=== PATIENT | male | born 1965 | race Caucasian/White ===

== ENCOUNTER 2018-12-17 21:46 | Emergency (ER) | payer BC, OTHER ==
[2018-12-17] MEDS ORDERED: Ketorolac 60 MG/2 ML SDV IM ONE (22:30)
--- NOTE | 2018-12-17 22:34 | EDM.PDOC ---
ED HPI GENERAL MEDICAL PROBLEM - General Chief Complaint: ENT Problem Stated Complaint: TOOTHACHE Time Seen by Provider: 12/17/18 22:26 Source of Information: Reports: Patient History Limitations: Reports: No Limitations - History of Present Illness INITIAL COMMENTS - FREE TEXT/NARRATIVE: 53-year-old gentleman presents emergency department today complaint of dental pain, he was evaluated in the clinic earlier today diagnosed with dental abscess started on penicillin, he does have an appointment for dentistry on Thursday unfortunately is been unable to keep his pain under control combination Tylenol and Motrin - Related Data Allergies Allergy/AdvReac Type Severity Reaction Status Date / Time No Known Allergies Allergy Verified 12/17/18 22:20 Home Meds: Home Meds Doxepin [SINEquan] 25 mg PO BEDTIME 12/17/18 [History] Lisdexamfetamine Dimesylate [Vyvanse] 70 mg PO DAILY 12/17/18 [History] Penicillin V Potassium 250 mg PO QID 12/17/18 [History] buPROPion [buPROPion XL] 150 mg PO DAILY 12/17/18 [History] Past Medical History Cardiovascular History: Reports: Hypertension Psychiatric History: Reports: PTSD Endocrine/Metabolic History: Reports: Obesity/BMI 30+ - Past Surgical History HEENT Surgical History: Reports: Other (See Below) Other HEENT Surgeries/Procedures: nasal septum surgery Social & Family History - Tobacco Use Smoking Status *Q: Former Smoker Used Tobacco, but Quit: Yes Month/Year Tobacco Last Used: 2016 Tobacco Use Comment: vapes - Caffeine Use Caffeine Use: Reports: Coffee - Recreational Drug Use Recreational Drug Use: No ED ROS ENT - Review of Systems Review Of Systems: See Below HEENT: Reports: Dental Pain ED EXAM, ENT - Physical Exam Exam: See Below Text/Narrative:: Tooth #31 has a large dental Raven there is tenderness and edema around that tooth he does have some facial swelling as well lymphadenopathy is appreciated on the right side Exam Limited By: No Limitations General Appearance: Alert, WD/WN, No Apparent Distress Respiratory/Chest: No Respiratory Distress Course - Vital Signs Last Recorded V/S: Last Vital Signs Temp 97.0 F 12/17/18 22:24 Pulse 61 12/17/18 22:24 Resp 18 12/17/18 22:24 BP 188/113 H 12/17/18 22:24 Pulse Ox 98 12/17/18 22:24 - Orders/Labs/Meds Orders: Active Orders 24 hr Category Date Time Status Ketorolac [Toradol] Med 12/17/18 22:30 Once 60 mg IM ONETIME ONE Medication Orders Ketorolac Tromethamine (Toradol) 60 mg IM ONETIME ONE Stop: 12/17/18 22:31 Meds: Medications Generic Name Dose Route Start Last Admin Trade Name Lillie PRN Reason Stop Dose Admin Ketorolac Tromethamine 60 mg 12/17/18 22:30 Toradol IM 12/17/18 22:31 ONETIME ONE Departure - Departure Time of Disposition: 22:33 Disposition: Home, Self-Care 01 Condition: Fair Clinical Impression: Dental abscess - Discharge Information Referrals: Daria Pennington PA-C [Primary Care Provider] - Additional Instructions: Use ibuprofen for baseline pain control, use hydrocodone for breakthrough pain, please keep your follow-up appointment with dentistry - My Orders Last 24 Hours: My Active Orders 12/17/18 22:30 Ketorolac [Toradol] 60 mg IM ONETIME ONE - Assessment/Plan Last 24 Hours: My Active Orders 12/17/18 22:30 Ketorolac [Toradol] 60 mg IM ONETIME ONE Plan: Assessment Acuity = acute Site and laterality = dental abscess tooth #31 Etiology = dental caries and bacteria Manifestations = pain Location of injury = Home Lab values = none Plan prescription written for hydrocodone 5/325 one tablet by mouth every 4 hours when necessary total #12 he has a follow-up with dentistry on Thursday This note was dictated using [employer] voice recognition software please call with any questions on syntax or grammar.
== END 2018-12-17 22:50 | disposition home or self-care (01) ==
LOC: JP.ED 21:46
DX: K04.7 Periapical abscess without sinus (principal); K02.9 Dental caries, unspecified; B96.89 Other specified bacterial agents as the cause of diseases classified elsewhere; I10 Essential (primary) hypertension; Z79.899 Other long term (current) drug therapy; Z87.891 Personal history of nicotine dependence
CPT/HCPCS: 96372; 99282; J1885

== ENCOUNTER 2019-01-31 04:08 | Inpatient (IN) | payer BC, OTHER ==
[2019-01-31] MEDS ORDERED: HYDROmorphone 1 MG/ML Syringe IVPUSH ONE ×3 (04:19→05:51)
[2019-01-31] MEDS ORDERED: Ondansetron 4 MG/2 ML SDV IVPUSH ONE (04:21)
--- NOTE | 2019-01-31 04:28 | EDM.PDOC ---
<Manolo Cottrell G - Last Filed: 01/31/19 05:48> ED HPI GENERAL MEDICAL PROBLEM - General Chief Complaint: Abdominal Pain Stated Complaint: ABD PAIN Time Seen by Provider: 01/31/19 04:15 Source of Information: Reports: Patient, Old Records, RN History Limitations: Reports: No Limitations - History of Present Illness INITIAL COMMENTS - FREE TEXT/NARRATIVE: 53 yo male here with severe abdominal pain that began about 4 hrs ago. He has had associated nausea and vomiting. No fever. Pain began in the L flank, and is now just infraumbilical. He denies a hx of any previous surgeries on his abdomen or pain like this. No hematuria or dysuria. No hematemesis, melena or hematochezia. Onset: Today, Sudden Onset Date: 01/31/19 Onset Time: 00:10 Duration: Hour(s): (4), Constant Location: Reports: Abdomen, Back (L flank) Quality: Reports: Ache Severity: Severe Improves with: Reports: None Worsens with: Reports: None Context: Reports: Other (See HPI) Associated Symptoms: Reports: Nausea/Vomiting. Denies: Fever/Chills Treatments ENVIRONMENTAL SAMPLER: Reports: Other (see below) (none) Abdominal Pain Score (Numeric/FACES): 2 - Related Data Allergies Allergy/AdvReac Type Severity Reaction Status Date / Time No Known Allergies Allergy Verified 01/31/19 04:21 Home Meds: Home Meds Lisdexamfetamine Dimesylate [Vyvanse] 70 mg PO DAILY 12/17/18 [History] buPROPion [buPROPion XL] 150 mg PO DAILY 12/17/18 [History] Hydrocodone/Acetaminophen [Hydrocodon-Acetaminophen 5-325] 1 each PO TID PRN # 10 tablet 01/31/19 [Rx] Ondansetron [Zofran ODT] 4 mg PO Q6H PRN #10 tab.dis 01/31/19 [Rx] Past Medical History Cardiovascular History: Reports: Hypertension Psychiatric History: Reports: PTSD Endocrine/Metabolic History: Reports: Obesity/BMI 30+ - Past Surgical History HEENT Surgical History: Reports: Other (See Below) Other HEENT Surgeries/Procedures: nasal septum surgery Social & Family History - Caffeine Use Caffeine Use: Reports: Coffee ED ROS GENERAL - Review of Systems Review Of Systems: See Below Constitutional: Reports: Chills. Denies: Fever HEENT: Reports: No Symptoms Respiratory: Reports: No Symptoms Cardiovascular: Reports: No Symptoms GI/Abdominal: Reports: Abdominal Pain, Nausea, Vomiting. Denies: Black Stool, Bloody Stool, Constipation, Diarrhea, Distension, Flatus, Hematochezia, Melena : Reports: Flank Pain (Left initially) Musculoskeletal: Reports: No Symptoms Skin: Reports: No Symptoms Neurological: Reports: No Symptoms Psychiatric: Reports: No Symptoms ED EXAM, GI/ABD - Physical Exam Exam: See Below Exam Limited By: No Limitations General Appearance: Alert, WD/WN, No Apparent Distress Eyes: Bilateral: Normal Appearance Ears: Hearing Grossly Normal Nose: Normal Inspection, No Blood Throat/Mouth: Normal Inspection, Normal Lips, Normal Oropharynx, Normal Voice, No Airway Compromise Head: Atraumatic, Normocephalic Neck: Normal Inspection Respiratory/Chest: No Respiratory Distress, Lungs Clear, Normal Breath Sounds, No Accessory Muscle Use Cardiovascular: Regular Rate, Rhythm, No Edema GI/Abdominal Exam: Soft, No Distention, Tender (mild increase in pain with palpation). No: Non-Tender, Distended, Guarding, Rigid, Rebound Back Exam: Normal Inspection. No: CVA Tenderness (R), CVA Tenderness (L) Extremities: Normal Inspection, Normal Range of Motion, Non-Tender, No Pedal Edema Neurological: Alert, Oriented, CN II-XII Intact, Normal Cognition, No Motor/ Sensory Deficits Psychiatric: Normal Affect, Normal Mood Skin Exam: Warm, Dry, Intact, Normal Color, No Rash Course - Vital Signs Last Recorded V/S: Last Vital Signs Temp 96.1 F 01/31/19 04:23 Pulse 78 01/31/19 06:06 Resp 18 01/31/19 06:06 BP 127/77 01/31/19 06:06 Pulse Ox 96 01/31/19 06:06 - Orders/Labs/Meds Orders: Active Orders 24 hr Category Date Time Status Lactated Ringers [Ringers, Lactated] 1,000 ml Med 01/31/19 04:30 Active IV ASDIRECTED Medication Orders Lactated Ringer's (Ringers, Lactated) 1,000 mls @ 500 mls/hr IV ASDIRECTED ZENON Last Admin: 01/31/19 04:34 Dose: 500 mls/hr Labs: Laboratory Tests 01/31/19 01/31/19 01/31/19 Range/Units 04:43 04:43 05:01 WBC 8.7 (4.5-11.0) K/uL RBC 5.09 (4.30-5.90) M/uL Hgb 15.0 (12.0-15.0) g/dL Hct 43.5 (40.0-54.0) % MCV 86 (80-98) fL MCH 30 (27-31) pg MCHC 35 (32-36) % Plt Count 198 (150-400) K/uL Sodium 133 L (140-148) mmol/L Potassium 4.1 (3.6-5.2) mmol/L Chloride 97 L (100-108) mmol/L Carbon Dioxide 24 (21-32) mmol/L Anion Gap 16.1 H (5.0-14.0) mmol/L BUN 18 (7-18) mg/dL Creatinine 1.1 (0.8-1.3) mg/dL Est Cr Clr Drug Dosing 94.96 mL/min Estimated GFR (MDRD) > 60 (>60) Glucose 163 H (74-106) mg/dL Calcium 9.4 (8.5-10.1) mg/dL Total Bilirubin 0.5 (0.2-1.0) mg/dL AST 18 (15-37) U/L ALT 50 (12-78) U/L Alkaline Phosphatase 47 (46-116) U/L Total Protein 7.0 (6.4-8.2) g/dL Albumin 4.0 (3.4-5.0) g/dL Globulin 3.0 (2.3-3.5) g/dL Albumin/Globulin Ratio 1.3 (1.2-2.2) Lipase 107 (73-393) U/L Urine Color Yellow Urine Appearance Clear Urine pH 5.0 (4.5-8.0) Ur Specific [place] 1.025 (1.008-1.030) Urine Protein Trace (NEGATIVE) mg/dL Urine Glucose (UA) Normal (NEGATIVE) mg/dL Urine Ketones Negative (NEGATIVE) mg/dL Urine Occult Blood Negative (NEGATIVE) Urine Nitrite Negative (NEGAITVE) Urine Bilirubin Negative (NEGATIVE) Urine Urobilinogen Normal (NORMAL) mg/dL Ur Leukocyte Esterase Negative (NEGATIVE) Urine RBC 0-5 (0-5) Urine WBC Not seen (0-5) Ur Epithelial Cells Rare Amorphous Sediment Not seen Urine Bacteria Few Urine Mucus Not seen Meds: Medications Generic Name Dose Route Start Last Admin Trade Name Lillie PRN Reason Stop Dose Admin Lactated Ringer's 1,000 mls @ 500 mls/hr 01/31/19 04:30 01/31/19 04:34 Ringers, Lactated IV 500 mls/hr ASDIRECTED ZENON Administration Discontinued Medications Generic Name Dose Route Start Last Admin Trade Name Lillie PRN Reason Stop Dose Admin Hydromorphone HCl 1 mg 01/31/19 04:19 01/31/19 04:34 Dilaudid IVPUSH 01/31/19 04:20 1 mg ONETIME ONE Administration Hydromorphone HCl 1 mg 01/31/19 04:37 01/31/19 04:47 Dilaudid IVPUSH 01/31/19 04:38 1 mg ONETIME ONE Administration Hydromorphone HCl 1 mg 01/31/19 05:51 01/31/19 05:57 Dilaudid IVPUSH 01/31/19 05:52 1 mg ONETIME ONE Administration Sodium Chloride 1,000 mls @ 1,000 mls/hr 01/31/19 05:50 01/31/19 06:04 Normal Saline IV 01/31/19 06:49 1,000 mls/hr .BOLUS ONE Administration Iopamidol 150 ml 01/31/19 06:00 01/31/19 06:23 Isovue-300 (61%) IV 150 ml . DIRECTED ZENON Administration Ketorolac Tromethamine 30 mg 01/31/19 04:31 01/31/19 04:35 Toradol IVPUSH 01/31/19 04:32 30 mg ONETIME ONE Administration Ondansetron HCl 4 mg 01/31/19 04:21 01/31/19 04:35 Zofran IVPUSH 01/31/19 04:22 4 mg ONETIME ONE Administration Sodium Chloride 10 ml 01/31/19 05:55 01/31/19 06:24 Saline Flush FLUSH 01/31/19 05:56 10 ml ONETIME ONE Administration - Radiology Interpretation Free Text/Narrative:: CT abd/pelvis with IV contrast- CT Results Date: 01/31/19 Departure - Departure Disposition: Home, Self-Care 01 Clinical Impression: Abdominal pain Qualifiers: Abdominal location: left upper quadrant Qualified Code(s): R10.12 - Left upper quadrant pain - Discharge Information Prescriptions: Hydrocodone/Acetaminophen [Hydrocodon-Acetaminophen 5-325] 1 each PO TID PRN # 10 tablet PRN Reason: Pain Ondansetron [Zofran ODT] 4 mg PO Q6H PRN #10 tab.dis PRN Reason: Nausea Instructions: Abdominal Pain, Adult, [id number] Referrals: PCP,None [Primary Care Provider] - Forms: ED Department Discharge Additional Instructions: Your medications have been faxed to [facility], use hydrocodone as needed for pain control, use Zofran as needed for nausea and vomiting symptoms, please report for your HIDA scan as scheduled, Dr. Redd will see you in clinic following the HIDA scan for further plan, call or return to the emergency department with worsening of symptoms <OfficerRonal - Last Filed: 01/31/19 07:29> Departure - Departure Time of Disposition: 07:28 Condition: Fair - Assessment/Plan Plan: Took over care from Dr. Lira at 7 AM Assessment Acuity = acute Site and laterality = abdominal pain Etiology = suspicious for underlying gallbladder disease Manifestations = pain now resolved Location of injury = Home Lab values = CBC CMP, urinalysis unremarkable CT scan of the abdomen shows no acute process however splenomegaly, cholelithiasis diverticulosis CT copy provided to the patient Plan He is pain-free at this time prescription written for hydrocodone 5/325 one tab by mouth 3 times a day when necessary total #10 also Zofran ODT 4 mg 1 tablet by mouth every 6 hours when necessary total #10 both medications faxed to [facility] he is set up for a HIDA scan with follow-up consultation from Dr. Redd in the clinic, I did discuss the case with Dr. Redd at 710 This note was dictated using [employer] voice recognition software please call with any questions on syntax or grammar.
[2019-01-31] MEDS ORDERED: Lactated Ringers 1,000 ML IV SCH (04:30)
[2019-01-31] MEDS ORDERED: Ketorolac 30 MG/ML SDV IVPUSH ONE (04:31)
[2019-01-31] MEDS ORDERED: Sodium Chloride 0.9% 1,000 ML IV ONE (05:50)
[2019-01-31] MEDS ORDERED: Iopamidol 612 MG/ML 150 ML Bottle IV SCH (06:00)
[2019-01-31] MEDS: Sodium Chloride 0.9% 10 ML Syringe FLUSH ONE ×2 (06:06→06:24)
--- NOTE | 2019-01-31 06:52 | CRLCT ---
HISTORY: Abdominal pain, vomiting. TECHNIQUE: CT abdomen and pelvis with IV contrast. COMPARISON: None. FINDINGS: Abdomen: Focal fatty infiltration of liver near the falciform ligament. No hepatic mass. No bile duct dilation. Cholelithiasis. No pancreatic mass or pancreatic duct dilation. No spleen lesions. Spleen is enlarged measuring 18.5 cm craniocaudal. No adrenal nodules. Kidneys enhance symmetrically. No renal mass. No hydronephrosis. No dilated bowel. No acute appendicitis. Mild colonic diverticulosis. No pericolonic inflammatory change. No free fluid. No free intraperitoneal gas. Small fat containing umbilical hernia. No lymphadenopathy. Abdominal aorta is normal caliber. Pelvis: No lymphadenopathy. Musculoskeletal: Degenerative changes of the spine and sacroiliac joints. Lower chest: Minimal atelectasis in the lung bases. 3 mm pulmonary nodules in the right lower lobe (series 2 images 2 and 24). IMPRESSION: 1. No acute abnormality in the abdomen or pelvis. 2. Splenomegaly. 3. Cholelithiasis. 4. Colonic diverticulosis. 5. 2 3 mm pulmonary nodules in right lower lobe. If patient is high risk for malignancy consider followup chest CT in 12 months. Dictated by sEa Ayon MD @ 01/31/2019 6:50:44 AM Please note that all CT scans at this facility use dose modulation, iterative reconstruction, and/or weight-based dosing when appropriate to reduce radiation dose to as low as reasonably achievable. Dictated by: Esa Ayon MD @ 01/31/2019 06:50:57 (Electronically Signed)
[2019-01-31] MEDS ORDERED: fentaNYL 100 MCG/2 ML SDV IVPUSH ONE (07:41)
[2019-01-31] MEDS ORDERED: Prochlorperazine 10 MG/2 ML SDV IVPUSH ONE (09:34)
--- NOTE | 2019-01-31 09:50 | PCM.HP ---
H&P History of Present Illness - General Date of Service: 01/31/19 Admit Problem/Dx: Admission Diagnosis/Problem Admission Diagnosis/Problem Cholecystitis Source of Information: Patient, Family, Provider, RN Notes Reviewed History Limitations: Reports: No Limitations - History of Present Illness Initial Comments - Free Text/Narative: Mr. Larry is a 53-year-old gentleman who is admitted through the emergency department with right upper quadrant abdominal pain, nausea, and vomiting, secondary to underlying cholecystitis. It been feeling well until last night when he began to experience right upper quadrant abdominal pain associated with nausea vomiting. Symptoms persisted and he presented to the emergency department for further evaluation. Laboratory studies are unremarkable, CT scan did show significant cholelithiasis. Right upper quadrant ultrasound shows all bladder wall thickening with a positive Farr's sign. Findings have been reviewed with Dr. Redd who is requested patient be admitted to the hospital, he will seen in a.m. with plan for laparoscopic cholecystectomy. Abdominal Pain Score (Numeric/FACES): 6 - Related Data Allergies/Adverse Reactions: Allergies Allergy/AdvReac Type Severity Reaction Status Date / Time No Known Allergies Allergy Verified 01/31/19 04:21 Home Medications: Home Meds Lisdexamfetamine Dimesylate [Vyvanse] 70 mg PO DAILY 12/17/18 [History] buPROPion [buPROPion XL] 150 mg PO DAILY 12/17/18 [History] Hydrocodone/Acetaminophen [Hydrocodon-Acetaminophen 5-325] 1 each PO TID PRN # 10 tablet 01/31/19 [Rx] Ondansetron [Zofran ODT] 4 mg PO Q6H PRN #10 tab.dis 01/31/19 [Rx] Past Medical History HEENT History: Reports: Allergic Rhinitis, Impaired Vision Cardiovascular History: Reports: Hypertension Respiratory History: Reports: Sleep Apnea Psychiatric History: Reports: PTSD Endocrine/Metabolic History: Reports: Obesity/BMI 30+ Dermatologic History: Reports: Cellulitis - Infectious Disease History Infectious Disease History: Reports: Chicken Pox - Past Surgical History HEENT Surgical History: Reports: Other (See Below) Other HEENT Surgeries/Procedures: nasal septum surgery Social & Family History - Caffeine Use Caffeine Use: Reports: Coffee - Recreational Drug Use Recreational Drug Use: No H&P Review of Systems - Review of Systems: Review Of Systems: See Below General: Reports: Chills, Weakness, Diaphoresis, Decreased Appetite HEENT: Reports: No Symptoms Pulmonary: Reports: No Symptoms Cardiovascular: Reports: No Symptoms Gastrointestinal: Reports: Abdominal Pain, Anorexia, Constipation, Distension, Nausea, Vomiting. Denies: Black Stool, Bloody Stool, Diarrhea, Difficulty Swallowing Genitourinary: Reports: No Symptoms Musculoskeletal: Reports: No Symptoms Skin: Reports: No Symptoms Psychiatric: Reports: No Symptoms Neurological: Reports: No Symptoms Hematologic/Lymphatic: Reports: No Symptoms Immunologic: Reports: No Symptoms Exam - Exam Exam: See Below - Vital Signs Vital Signs: Last Vital Signs Temp 96.1 F 01/31/19 07:34 Pulse 69 01/31/19 07:34 Resp 16 01/31/19 07:34 BP 131/77 01/31/19 07:34 Pulse Ox 96 01/31/19 07:34 Weight: 332 lb 0.258 oz - Exam Quality Assessment: DVT Prophylaxis General: Alert, Oriented, Cooperative, Moderate Distress HEENT: Conjunctiva Clear, Hearing Intact, Mucosa Moist & [place], Normal Nasal Septum, Posterior Pharynx Clear, Pupils Equal Neck: Supple, Trachea Midline, +2 Carotid Pulse wo Bruit Lungs: Clear to Auscultation, Normal Respiratory Effort Cardiovascular: Regular Rate, Regular Rhythm, Normal S1, Normal S2. No: Systolic Murmur, Diastolic Murmur GI/Abdominal Exam: Soft, No Organomegaly, Distended, Tender. No: Guarding, Rigid, Rebound Back Exam: Normal Inspection, Full Range of Motion Extremities: Non-Tender, No Pedal Edema Skin: Warm, Dry, Intact Neurological: Cranial Nerves Intact, Strength Equal Bilateral, Normal Speech, Normal Tone. No: Sensation Intact Neuro Extensive - Mental Status: Alert, Oriented x3, Normal Mood/Affect, Normal Cognition, Memory Intact - Patient Data Lab Results Last 24 hrs: Laboratory Results - last 24 hr 01/31/19 01/31/19 01/31/19 Range/Units 04:43 04:43 05:01 WBC 8.7 (4.5-11.0) K/uL RBC 5.09 (4.30-5.90) M/uL Hgb 15.0 (12.0-15.0) g/dL Hct 43.5 (40.0-54.0) % MCV 86 (80-98) fL MCH 30 (27-31) pg MCHC 35 (32-36) % Plt Count 198 (150-400) K/uL Sodium 133 L (140-148) mmol/L Potassium 4.1 (3.6-5.2) mmol/L Chloride 97 L (100-108) mmol/L Carbon Dioxide 24 (21-32) mmol/L Anion Gap 16.1 H (5.0-14.0) mmol/L BUN 18 (7-18) mg/dL Creatinine 1.1 (0.8-1.3) mg/dL Est Cr Clr Drug Dosing 94.96 mL/min Estimated GFR (MDRD) > 60 (>60) Glucose 163 H (74-106) mg/dL Calcium 9.4 (8.5-10.1) mg/dL Total Bilirubin 0.5 (0.2-1.0) mg/dL AST 18 (15-37) U/L ALT 50 (12-78) U/L Alkaline Phosphatase 47 (46-116) U/L Troponin I (0.000-0.056) ng/mL Total Protein 7.0 (6.4-8.2) g/dL Albumin 4.0 (3.4-5.0) g/dL Globulin 3.0 (2.3-3.5) g/dL Albumin/Globulin Ratio 1.3 (1.2-2.2) Lipase 107 (73-393) U/L Urine Color Yellow Urine Appearance Clear Urine pH 5.0 (4.5-8.0) Ur Specific [place] 1.025 (1.008-1.030) Urine Protein Trace (NEGATIVE) mg/dL Urine Glucose (UA) Normal (NEGATIVE) mg/dL Urine Ketones Negative (NEGATIVE) mg/dL Urine Occult Blood Negative (NEGATIVE) Urine Nitrite Negative (NEGAITVE) Urine Bilirubin Negative (NEGATIVE) Urine Urobilinogen Normal (NORMAL) mg/dL Ur Leukocyte Esterase Negative (NEGATIVE) Urine RBC 0-5 (0-5) Urine WBC Not seen (0-5) Ur Epithelial Cells Rare Amorphous Sediment Not seen Urine Bacteria Few Urine Mucus Not seen 01/31/19 Range/Units 07:54 WBC (4.5-11.0) K/uL RBC (4.30-5.90) M/uL Hgb (12.0-15.0) g/dL Hct (40.0-54.0) % MCV (80-98) fL MCH (27-31) pg MCHC (32-36) % Plt Count (150-400) K/uL Sodium (140-148) mmol/L Potassium (3.6-5.2) mmol/L Chloride (100-108) mmol/L Carbon Dioxide (21-32) mmol/L Anion Gap (5.0-14.0) mmol/L BUN (7-18) mg/dL Creatinine (0.8-1.3) mg/dL Est Cr Clr Drug Dosing mL/min Estimated GFR (MDRD) (>60) Glucose (74-106) mg/dL Calcium (8.5-10.1) mg/dL Total Bilirubin (0.2-1.0) mg/dL AST (15-37) U/L ALT (12-78) U/L Alkaline Phosphatase (46-116) U/L Troponin I < 0.017 (0.000-0.056) ng/mL Total Protein (6.4-8.2) g/dL Albumin (3.4-5.0) g/dL Globulin (2.3-3.5) g/dL Albumin/Globulin Ratio (1.2-2.2) Lipase (73-393) U/L Urine Color Urine Appearance Urine pH (4.5-8.0) Ur Specific [place] (1.008-1.030) Urine Protein (NEGATIVE) mg/dL Urine Glucose (UA) (NEGATIVE) mg/dL Urine Ketones (NEGATIVE) mg/dL Urine Occult Blood (NEGATIVE) Urine Nitrite (NEGAITVE) Urine Bilirubin (NEGATIVE) Urine Urobilinogen (NORMAL) mg/dL Ur Leukocyte Esterase (NEGATIVE) Urine RBC (0-5) Urine WBC (0-5) Ur Epithelial Cells Amorphous Sediment Urine Bacteria Urine Mucus Result Diagrams: 01/31/19 04:43 01/31/19 04:43 *Q Meaningful Use (ADM) - VTE Risk Assess *Q Each Risk Factor Represents 1 Point: Age 41 - 59 years, Obesity ( BMI > 25 kg/m2 ) Total Score 1 Point Risk Factors: 2 Each Risk Factor Represents 2 Points: None Total Score 2 Point Risk Factors: 0 Each Risk Factor Represents 3 Points: None Total Score 3 Point Risk Factors: 0 Each Risk Factor Represents 5 Points: None Total Score 5 Point Risk Factors: 0 Venous Thromboembolism Risk Factor Score *Q: 2 Problem List Initiated/Reviewed/Updated: Yes Orders Last 24hrs: Active Orders 24 hr Category Date Time Status Patient Status Manage Transfer [TRANSFER] Routine ADT 01/31/19 09:34 Ordered Abdomen Ltd [US] Stat Exams 01/31/19 08:48 Taken Lactated Ringers [Ringers, Lactated] 1,000 ml Med 01/31/19 04:30 Active IV ASDIRECTED Resuscitation Status Routine Resus Stat 01/31/19 09:36 Ordered Medication Orders Lactated Ringer's (Ringers, Lactated) 1,000 mls @ 500 mls/hr IV ASDIRECTED ZENON Last Admin: 01/31/19 04:34 Dose: 500 mls/hr Assessment/Plan Comment:: ASSESSMENT AND PLAN ACUTE CHOLECYSTITIS-onset of symptoms last night with right upper quadrant abdominal pain, nausea, and vomiting. Abdominal ultrasound shows gallbladder wall thickening with positive Farr sign. -Consult Dr. Redd for laparoscopic cholecystectomy -Nothing by mouth -IV fluids for hydration -Medication for pain and nausea as needed -IV fluids for hydration -IV Unasyn and Azactam SLEEP APNEA -Patient's will bring in his CPAP unit for use while in the hospital MAINTENANCE ISSUES -DVT prophylaxis; scuds -GI prophylaxis; Protonix 40 mg IV every 24 hours -Matthews catheter; not indicated -Nutrition; nothing by mouth -Nicotine dependence; not required CODE STATUS-FULL CODE ADMISSION STATUS-patient will be admitted to inpatient status, expect at least a 2 night hospital stay for evaluation and management of problems as outlined above. At the time of this admission I do not reasonably expected evaluation and management of this problem will require more than a 96 hour hospital stay. DISPOSITION-anticipate discharge to home after the hospital stay. PRIMARY CARE PROVIDER
--- NOTE | 2019-01-31 09:54 | US ---
Abdomen Ltd CLINICAL HISTORY: Right upper quadrant pain, gallstones FINDINGS: Liver is homogeneous echotexture. There is no intrahepatic biliary dilatation. There are numerous gallstones. The gallbladder wall measures 5 mm. No pericholecystic fluid is identified. Patient did have a positive Farr's sign on scanning over the gallbladder. Common bile duct measures 7 mm. The pancreas is free of mass. Right kidney has a normal contour. IMPRESSION: Cholelithiasis with thickened gallbladder wall and regional tenderness suggesting cholecystitis. Common bile duct is marginal at 7 mm in diameter
[2019-01-31] MEDS ORDERED: Acetaminophen 325 MG Tab PO PRN (10:19)
[2019-01-31] MEDS ORDERED: Ondansetron 4 MG/2 ML SDV IV PRN (10:19)
[2019-01-31] MEDS ORDERED: Polyethylene Glycol 3350 Powder 17 GM Packet PO PRN (10:19)
[2019-01-31] MEDS ORDERED: Sodium Phosphate,Monobasic/Sodium Phosphate,Dibasic Enema 133 ML Bottle RECTAL PRN (10:19)
[2019-01-31] MEDS ORDERED: Sodium Chloride 0.9% 10 ML Syringe FLUSH PRN (10:19)
[2019-01-31] MEDS ORDERED: LORazepam 2 MG/ML SDV IV PRN (10:19)
[2019-01-31] MEDS: Lactated Ringers 1,000 ML IV SCH ×2 (10:38→19:45)
[2019-01-31] MEDS: Pantoprazole 40 MG Vial IVPUSH SCH (10:41)
[2019-01-31] MEDS: buPROPion 150 MG Tab.ER PO SCH (10:41)
[2019-01-31] MEDS ORDERED: Bisacodyl 10 MG Supp RECTAL ONE (11:00)
[2019-01-31] MEDS: HYDROmorphone 0.5 MG/0.5 ML Syringe IVPUSH PRN ×2 (11:14→13:14)
[2019-01-31] MEDS: Ampicillin/Sulbactam Na 1.5 GM in Sodium Chloride 0.9% 50 ML IV SCH ×3 (11:37→21:54)
[2019-01-31] MEDS ORDERED: Aztreonam/Dextrose-Water 1 GM in Premix Bag 1 BAG IV SCH (12:00)
[2019-01-31] MEDS ORDERED: Naloxone 0.4 MG/ML SDV IV PRN (14:53)
[2019-01-31] MEDS ORDERED: HYDROmorphone/Normal Saline 15 MG/30 ML PCA IV PRN (14:53)
[2019-01-31] MEDS ORDERED: Scopolamine 1.5 MG Transdermal Patch TRDERM PRN (20:04)
[2019-02-01] MEDS: Ampicillin/Sulbactam Na 1.5 GM in Sodium Chloride 0.9% 50 ML IV SCH ×4 (04:11→23:52)
[2019-02-01] MEDS: Lactated Ringers 1,000 ML IV SCH (05:03)
[2019-02-01] MEDS ORDERED: Ketorolac 60 MG/2 ML SDV IM STA (08:00)
[2019-02-01] MEDS: Magnesium Sulfate/Water 2 GM in Premix Bag 1 BAG IV SCH ×3 (08:22→21:20)
[2019-02-01] MEDS ORDERED: fentaNYL 250 MCG/5 ML SDV ONE (08:57)
[2019-02-01] MEDS ORDERED: Ondansetron 4 MG/2 ML SDV ONE (08:58)
[2019-02-01] MEDS ORDERED: Rocuronium 50 MG/5 ML Vial ONE (08:58)
[2019-02-01] MEDS ORDERED: Dexamethasone 4 MG/ML SDV ONE (08:58)
[2019-02-01] MEDS ORDERED: Glycopyrrolate 0.2 MG/ML 5 ML MDV ONE (08:58)
[2019-02-01] MEDS ORDERED: Propofol 200 MG/20 ML SDV ONE (08:58)
[2019-02-01] MEDS ORDERED: Neostigmine Methylsulfate 1 MG/ML 5 ML Syringe ONE (08:58)
[2019-02-01] MEDS ORDERED: Succinylcholine 200 MG/10 ML MDV ONE (08:58)
[2019-02-01] MEDS ORDERED: CHECK SCOPOLAMINE PATCH DAILY TOP SCH (09:00)
[2019-02-01] MEDS: Pantoprazole 40 MG Vial IVPUSH SCH (10:11)
[2019-02-01] MEDS: VYVANSE 70 MG PO SCH (10:21)
[2019-02-01] MEDS ORDERED: Bupivacaine 0.5%/EPINEPHrine 1:200,000 50 ML MDV ONE ×2 (11:08→13:14)
--- NOTE | 2019-02-01 12:47 | PN ---
DATE OF SERVICE: 02/01/2019 SUBJECTIVE: Kingsley is n.p.o. He will be having laparoscopic cholecystectomy today. He does report a caffeine headache and is going through some nicotine withdrawal. The pain is controlled. Vital signs have been stable. REVIEW OF SYSTEMS: Remainder of review of systems negative for any pertinent positives and negatives. OBJECTIVE: GENERAL: Kingsley Larry is a 53-year-old male. He is alert, orientated, sitting up in the chair. VITAL SIGNS: TPR 98, 84, 16, blood pressure is 136/78. HEENT: Negative. NECK: Supple. HEART: Regular rate and rhythm. LUNGS: Clear. ABDOMEN: Minimal tenderness in the right upper quadrant. EXTREMITIES: Without peripheral edema. ASSESSMENT: Cholecystitis. PLAN: 1. Remain n.p.o. Preoperative evaluation and discussion of possible risks and possible complications, length of stay discussed as well as postoperative instructions. 2. Rx Toradol 60 mg IM given onetime for headache. 3. Magnesium 2 g IV q.6 hours x48 hours IV. 4. May have nicotine 7 mg patch postoperatively. 5. We will evaluate p.r.n. or in a.m. Sarah Eaton PA-C /[id number]
[2019-02-01] MEDS ORDERED: fentaNYL 100 MCG/2 ML SDV ONE (13:04)
[2019-02-01] MEDS ORDERED: hydrOXYzine HCl 100 MG/2 ML SDV IM ONE (13:21)
[2019-02-01] MEDS: buPROPion 150 MG Tab.ER PO SCH (14:40)
[2019-02-01] MEDS ORDERED: Dextrose 5%-Lactated Ringers 1,000 ML IV SCH (14:45)
[2019-02-01] MEDS: Acetaminophen/oxyCODONE 325-5 MG Tab PO PRN ×3 (15:32→23:55)
[2019-02-01] MEDS: Nicotine 7 MG/24 Hr Patch TRDERM SCH (15:39)
--- NOTE | 2019-02-01 17:03 | PCM.PN ---
- General Info Date of Service: 02/01/19 Subjective Update: Mr. Larry is status post cholecystectomy done earlier today by Dr. Redd. During monitoring for surgery he was found to be in atrial fibrillation with controlled ventricular response. This is a new finding for him, there is no history of underlying cardiac disease. He is not aware of the dysrhythmia and denies any symptoms of cardiac disease. He has no history of thyroid disease and other than mild hypomagnesemia no significant electrolyte abnormalities or anemia. - Review of Systems General: Reports: No Symptoms Pulmonary: Reports: No Symptoms Cardiovascular: Reports: No Symptoms Gastrointestinal: Reports: Abdominal Pain. Denies: Difficulty Swallowing, Nausea, Vomiting - Patient Data Vitals - Most Recent: Last Vital Signs Temp 98.4 F 02/01/19 16:00 Pulse 98 02/01/19 16:00 Resp 16 02/01/19 16:00 BP 107/63 02/01/19 16:00 Pulse Ox 94 L 02/01/19 16:00 Weight - Most Recent: 332 lb 0.258 oz I&O - Last 24 Hours: Intake & Output 02/01/19 02/01/19 02/01/19 06:59 14:59 22:59 Intake Total 1248 780 650 Output Total 2175 5 1150 Balance -927 775 -500 Lab Results Last 24 Hours: Laboratory Results - last 24 hr 02/01/19 02/01/19 Range/Units 04:15 04:15 WBC 8.0 (4.5-11.0) K/uL RBC 4.50 (4.30-5.90) M/uL Hgb 13.5 (12.0-15.0) g/dL Hct 38.8 L (40.0-54.0) % MCV 86 (80-98) fL MCH 30 (27-31) pg MCHC 35 (32-36) % Plt Count 188 (150-400) K/uL Neut % (Auto) 75 H (36-66) % Lymph % (Auto) 17 L (24-44) % Barnwell % (Auto) 7 H (2-6) % Eos % (Auto) 1 L (2-4) % Baso % (Auto) 0 (0-1) % Sodium 137 L (140-148) mmol/L Potassium 3.7 (3.6-5.2) mmol/L Chloride 101 (100-108) mmol/L Carbon Dioxide 28 (21-32) mmol/L Anion Gap 11.7 (5.0-14.0) mmol/L BUN 9 (7-18) mg/dL Creatinine 0.9 (0.8-1.3) mg/dL Est Cr Clr Drug Dosing 116.06 mL/min Estimated GFR (MDRD) > 60 (>60) Glucose 105 (74-106) mg/dL Calcium 8.5 (8.5-10.1) mg/dL Magnesium 1.6 L (1.8-2.4) mg/dL Total Bilirubin 0.8 D (0.2-1.0) mg/dL AST 18 (15-37) U/L ALT 41 (12-78) U/L Alkaline Phosphatase 40 L (46-116) U/L Total Protein 5.9 L (6.4-8.2) g/dL Albumin 3.3 L (3.4-5.0) g/dL Globulin 2.6 (2.3-3.5) g/dL Albumin/Globulin Ratio 1.3 (1.2-2.2) Moiz Results Last 24 Hours: Microbiology 02/01/19 13:39 Gram Stain - Final Gallbladder Fluid - Bile Med Orders - Current: Current Medications Acetaminophen (Tylenol) 650 mg PO Q4H PRN PRN Reason: Pain (Mild 1-3)/fever Last Admin: 01/31/19 18:20 Dose: 650 mg Bupropion HCl (Wellbutrin Xl) 150 mg PO DAILY [facility] Last Admin: 02/01/19 14:40 Dose: 150 mg Ampicillin Sodium/Sulbactam (Sodium 1.5 gm/ Sodium Chloride) 50 mls @ 100 mls/ hr IV Q6HR [facility] Last Admin: 02/01/19 16:20 Dose: 100 mls/hr Aztreonam 1 gm/ Sodium (Chloride) 50 mls @ 100 mls/hr IV Q8H [facility] Last Admin: 02/01/19 12:00 Dose: 100 mls/hr Magnesium Sulfate 2 gm/ Premix 50 mls @ 25 mls/hr IV Q6H [facility] Stop: 02/04/19 03:59 Last Admin: 02/01/19 14:42 Dose: 25 mls/hr Dextrose/Lactated Ringer's (Dextrose 5%-Lactated Ringers) 1,000 mls @ 150 mls/ hr IV ASDIRECTED [facility] Lorazepam (Ativan) 0.5 mg IV Q2H PRN PRN Reason: Nausea/Vomiting Miscellaneous Information (Remove Patch) 1 ea TRDERM BEDTIME [facility] Nicotine (Habitrol) 7 mg TRDERM DAILY [facility] Last Admin: 02/01/19 15:39 Dose: 7 mg Vyvanse 70 Mg Pom* (*) 70 mg PO DAILY [facility] Last Admin: 02/01/19 10:21 Dose: Not Given Ondansetron HCl (Zofran) 4 mg IV Q4H PRN PRN Reason: Nausea/Vomiting Oxycodone/Acetaminophen (Percocet 325-5 Mg) 1 - 2 tab PO Q4H PRN PRN Reason: Pain Last Admin: 02/01/19 15:32 Dose: 1 tab Pantoprazole Sodium (Protonix Iv) 40 mg IVPUSH Q24H [facility] Last Admin: 02/01/19 10:11 Dose: 40 mg Polyethylene Glycol (Miralax) 17 gm PO DAILY PRN PRN Reason: Constipation Scopolamine (Transderm-Scop) 1.5 mg TRDERM Q72H PRN PRN Reason: Nausea/Vomiting Last Admin: 01/31/19 20:14 Dose: 1.5 mg Sodium Biphosphate/Sodium Phosphate (Fleet Enema) 133 ml RECTAL ONETIME PRN PRN Reason: Constipation Last Admin: 01/31/19 13:14 Dose: 133 ml Discontinued Medications Bisacodyl (Dulcolax) 10 mg RECTAL ONETIME ONE Stop: 01/31/19 11:01 Last Admin: 01/31/19 10:40 Dose: 10 mg Bupivacaine HCl/Epinephrine Bitart (Marcaine 0.5%/Epinephrine 1:200,000) Confirm Administered Dose 50 ml .ROUTE .STK-MED ONE Stop: 02/01/19 11:09 Last Admin: 02/01/19 12:00 Dose: 50 ml Bupivacaine HCl/Epinephrine Bitart (Marcaine 0.5%/Epinephrine 1:200,000) Confirm Administered Dose 50 ml .ROUTE .STK-MED ONE Stop: 02/01/19 13:15 Last Admin: 02/01/19 13:18 Dose: 30 ml Ropivacaine 60 ml/Dexamethasone 8 mg/Epinephrine HCl 0.4 mg/ Sodium Chloride 17.6 ml 0 ml NERVRT ASDIRECTED [facility] Last Admin: 02/01/19 12:18 Dose: 80 syringe Dexamethasone (Dexamethasone) Confirm Administered Dose 4 mg .ROUTE .STK-MED ONE Stop: 02/01/19 08:59 Fentanyl (Sublimaze) 100 mcg IVPUSH ONETIME ONE Stop: 01/31/19 07:42 Last Admin: 01/31/19 07:47 Dose: 100 mcg Fentanyl (Sublimaze) Confirm Administered Dose 250 mcg .ROUTE .STK-MED ONE Stop: 02/01/19 08:58 Fentanyl (Sublimaze) Confirm Administered Dose 100 mcg .ROUTE .STK-MED ONE Stop: 02/01/19 13:05 Glycopyrrolate (Robinul) Confirm Administered Dose 1 mg .ROUTE .STK-MED ONE Stop: 02/01/19 08:59 Hydromorphone HCl (Dilaudid) 1 mg IVPUSH ONETIME ONE Stop: 01/31/19 04:20 Last Admin: 01/31/19 04:34 Dose: 1 mg Hydromorphone HCl (Dilaudid) 1 mg IVPUSH ONETIME ONE Stop: 01/31/19 04:38 Last Admin: 01/31/19 04:47 Dose: 1 mg Hydromorphone HCl (Dilaudid) 1 mg IVPUSH ONETIME ONE Stop: 01/31/19 05:52 Last Admin: 01/31/19 05:57 Dose: 1 mg Hydromorphone HCl (Dilaudid) 0.5 mg IVPUSH Q2H PRN PRN Reason: Pain Last Admin: 01/31/19 13:14 Dose: 0.5 mg Hydromorphone HCl (Dilaudid Tomb Maker Helper 15 Mg In Ns 30 Ml) 0 mg IV ASDIRECTED PRN; Protocol PRN Reason: [employer] PAIN CONTROL Last Admin: 01/31/19 15:22 Dose: 0.3 mg Lactated Ringer's (Ringers, Lactated) 1,000 mls @ 500 mls/hr IV ASDIRECTED [facility] Last Admin: 01/31/19 04:34 Dose: 500 mls/hr Sodium Chloride (Normal Saline) 1,000 mls @ 1,000 mls/hr IV .BOLUS ONE Stop: 01/31/19 06:49 Last Admin: 01/31/19 06:04 Dose: 1,000 mls/hr Lactated Ringer's (Ringers, Lactated) 1,000 mls @ 125 mls/hr IV ASDIRECTED [facility] Last Admin: 02/01/19 05:03 Dose: 125 mls/hr Iopamidol (Isovue-300 (61%)) 150 ml IV . DIRECTED [facility] Last Admin: 01/31/19 06:23 Dose: 150 ml Ketorolac Tromethamine (Toradol) 30 mg IVPUSH ONETIME ONE Stop: 01/31/19 04:32 Last Admin: 01/31/19 04:35 Dose: 30 mg Ketorolac Tromethamine (Toradol) 60 mg IM ONETIME STA Stop: 02/01/19 08:01 Last Admin: 02/01/19 08:09 Dose: 60 mg Naloxone HCl (Narcan) 0.1 mg IV ASDIRECTED PRN PRN Reason: decreased respiratory rate Neostigmine Methylsulfate (Neostigmine) Confirm Administered Dose 5 mg .ROUTE .STK-MED ONE Stop: 02/01/19 08:59 Check Scopolamine (Patch Daily) 0 each TOP DAILY [facility] Ondansetron HCl (Zofran) 4 mg IVPUSH ONETIME ONE Stop: 01/31/19 04:22 Last Admin: 01/31/19 04:35 Dose: 4 mg Ondansetron HCl (Zofran) Confirm Administered Dose 4 mg .ROUTE .STK-MED ONE Stop: 02/01/19 08:59 Prochlorperazine Edisylate (Compazine) 5 mg IVPUSH ONETIME ONE Stop: 01/31/19 09:35 Last Admin: 01/31/19 09:49 Dose: 5 mg Propofol (Diprivan 20 Ml) Confirm Administered Dose 200 mg .ROUTE .STK-MED ONE Stop: 02/01/19 08:59 Rocuronium [place] (Zemuron) Confirm Administered Dose 50 mg .ROUTE .STK-MED ONE Stop: 02/01/19 08:59 Sodium Chloride (Saline Flush) 10 ml FLUSH ONETIME ONE Stop: 01/31/19 05:56 Last Admin: 01/31/19 06:24 Dose: 10 ml Sodium Chloride (Saline Flush) 10 ml FLUSH ASDIRECTED PRN PRN Reason: Keep Vein Open Succinylcholine Chloride (Quelicin) Confirm Administered Dose 200 mg .ROUTE .STK -MED ONE Stop: 02/01/19 08:59 - Exam General: Alert, Oriented, Cooperative, Mild Distress Lungs: Clear to Auscultation, Normal Respiratory Effort Cardiovascular: Regular Rate, Irregular Rhythm GI/Abdominal Exam: Soft, No Organomegaly, Tender. No: Distended, Guarding, Rigid, Rebound Extremities: Non-Tender, No Pedal Edema - Problem List Review Problem List Initiated/Reviewed/Updated: Yes - My Orders Last 24 Hours: My Active Orders 02/01/19 10:30 Lisdexamfetamine Dimesylate [Vyvanse] 70 mg PO DAILY 02/02/19 05:00 TSH ULTRASENSITIVE [CHEM] Timed - Plan Plan:: ASSESSMENT AND PLAN ACUTE CHOLECYSTITIS-status post laparoscopic cholecystectomy earlier today -surgical follow-up and management per Dr. Redd -IV Unasyn and Azactam ATRIAL FIBRILLATION WITH CVR-unknown duration, picked up incidentally during monitoring for surgery. No history of significant cardiac disease, he does have known sleep apnea. Asymptomatic and he was entirely unaware that he was in this rhythm. Other than his cholecystitis no other precipitating factors have been identified. -Continue to monitor -Echocardiogram to evaluate left ventricular function, chamber sizes and valvular status -TSH in a.m. -Outpatient follow-up with cardiology -He does not currently require anticoagulation, [id number] score is 0, score may change depending on results of echocardiogram, ie; if he is found to have significant left ventricular dysfunction SLEEP APNEA -Patient's will bring in his CPAP unit for use while in the hospital MAINTENANCE ISSUES -DVT prophylaxis; scuds -GI prophylaxis; Protonix 40 mg IV every 24 hours -Matthews catheter; not indicated -Nutrition; nothing by mouth -Nicotine dependence; not required CODE STATUS-FULL CODE ADMISSION STATUS-patient will be admitted to inpatient status, expect at least a 2 night hospital stay for evaluation and management of problems as outlined above. At the time of this admission I do not reasonably expected evaluation and management of this problem will require more than a 96 hour hospital stay. DISPOSITION-anticipate discharge to home after the hospital stay. PRIMARY CARE PROVIDER
[2019-02-02] MEDS: Magnesium Sulfate/Water 2 GM in Premix Bag 1 BAG IV SCH ×2 (01:41→07:59)
[2019-02-02] MEDS: Acetaminophen/oxyCODONE 325-5 MG Tab PO PRN ×3 (04:01→11:59)
[2019-02-02] MEDS: Ampicillin/Sulbactam Na 1.5 GM in Sodium Chloride 0.9% 50 ML IV SCH (04:37)
[2019-02-02] MEDS: VYVANSE 70 MG PO SCH (09:45)
[2019-02-02] MEDS: buPROPion 150 MG Tab.ER PO SCH (09:46)
[2019-02-02] MEDS: Nicotine 7 MG/24 Hr Patch TRDERM SCH (10:21)
--- NOTE | 2019-02-03 10:34 | DISCH ---
ADMISSION DIAGNOSES: 1. Cholecystitis. 2. Adult attention deficit hyperactivity disorder. DISCHARGE DIAGNOSES: 1. Laparoscopic cholecystectomy, Paul Redd MD, 02/01/2019. 2. Atrial fibrillation. HISTORY: Kingsley Larry is a 53-year-old male, who was admitted through the emergency room with right upper quadrant abdominal pain, nausea, and vomiting. After preoperative evaluation and discussion of possible risks and possible complications, he wished to proceed with surgical procedure. Preop diagnosis is cholecystitis with cholelithiasis. HOSPITAL COURSE: Kingsley had his surgery on 02/01/2019. He had no postoperative complications. On the evening of surgery, he did develop some atrial fibrillation and was evaluated by Sudhakar Low MD, hospitalist. On postoperative day #1, activity was good, pain was well managed, and he tolerated a diet well, and he was able to be discharged to home. He was diagnosed with atrial fibrillation with controlled ventricular response, and had mild hypomagnesia. OBJECTIVE: GENERAL: Kingsley Larry is a 53-year-old male, height is 6 feet 3.2 inches, weight is 332 pounds. VITAL SIGNS: TPR is 98, 74, 18, blood pressure 124/92. HEENT: Negative. NECK: Supple. HEART: Regular rate and rhythm. LUNGS: Clear. ABDOMEN: Sutures intact. Incisions look good. 4 x 4 over VANESSA drain site and abdominal binder is on. EXTREMITIES: Without peripheral edema. DISPOSITION: Discharged to home. CONDITION: Stable and improving. FOLLOWUP: Followup appointment with Sarah Eaton PA-C, on 02/09/2019 at 11:00 a.m. HOME MEDICATIONS: Percocet 5/325 mg 1 to 2 tabs every 4 hours p.r.n. pain, #42; milk of magnesia 30 mL p.o. daily p.r.n. constipation, 2 doses were sent home from hospital; magnesium oxide 400 mg p.o. daily, #30; resume taking Vyvanse 70 mg oral daily DIET: Usual diet as tolerated. Drink 8 to 10 glasses of water a day. ACTIVITY: No lifting greater than 10 pounds for 2 weeks. DRIVING: Do not drive for 1 week and while on pain medication. SHOWER/BATHING: May shower. Keep operative site clean and dry. DISCHARGE INSTRUCTIONS: Wear abdominal binder for 2 weeks and then as tolerated. Notify provider if any fever, increased pain, nausea, or vomiting. Use incentive spirometer 10 times every hour while awake for 1 week. Other appointment to be made per recommendation of Sudhakar Low MD, in regard to further workup for his atrial fibrillation.
--- NOTE | 2019-02-08 08:24 | OR ---
DATE OF PROCEDURE: 02/01/2019 PREOPERATIVE DIAGNOSIS: Probable [id number] cholecystitis and cholelithiasis. POSTOPERATIVE DIAGNOSES: 1. Severe [id number] cholecystitis and cholelithiasis. 2. Pericholecystic inflammatory fluid collection/abscess. 3. Reddened nodular lesion on the posterior aspect of the hepatic segment IV. PROCEDURE PERFORMED: Diagnostic laparoscopy with: A. Laparoscopic cholecystectomy (28932). B. Wedge biopsy of lesion on posterior aspect of the hepatic segment IV ([id number]). C. Drainage of pericholecystic inflammatory fluid collection/abscess ([id number]). ANESTHESIA: General. ASSISTANTS: 1. Sarah Eaton PA-C. 2. WANG Phillips. INDICATIONS FOR PROCEDURE: This is a 53-year-old presenting with picture of acute cholecystitis and cholelithiasis. The plan is to proceed with laparoscopic cholecystectomy. Potential risks including bleeding, infection, injury to underlying viscera, possible migration of stones in the common bile duct requiring additional procedures for correction, as well as possibility of cardiopulmonary, septic, or hemorrhagic complications leading to were discussed, and the patient wishes to proceed. DETAILS OF PROCEDURE: The patient was taken to the operating room and placed in a supine position. After general endotracheal anesthesia was induced, the abdomen was prepped and draped. Just to the right of the umbilicus, a transverse incision was made and the peritoneal cavity entered under direct vision with an Optiview trocar, inflated to 15 mmHg pressure with CO2. Laparoscope was reinserted with no underlying trocar insertion site injuries were seen. Following this, a 12 mm trocar was placed in the epigastrium and 5 mm trocar in the right subcostal area. As one peered upward, the gallbladder was noted to be strikingly inflamed and edematous. There was some patchy fat necrosis around the gallbladder. As one elevated the gallbladder, we needed to decompress the gallbladder in order to obtain adequate ability to hold onto it and manipulate it for the subsequent dissection. As one also elevated the liver, two additional findings were seen; one was the markedly inflamed area of the fluid collection posterior to the gallbladder. This contained thin purulent material within it. Cultures of this were obtained. There was also a frond- like nodular lesion on the posterior aspect of hepatic segment IV. This was excised by means of a wedge resection using Harmonic Scalpel and send for histologic evaluation. Good hemostasis was obtained with electrocautery at the wedge biopsy site. At this point, the gallbladder retracted anteriorly and laterally. Dissection began on the gallbladder neck and continued around the gallbladder neck/cystic duct junction. Once that area and the adjacent cystic artery were both well-defined, we decided to divide the cystic duct/gallbladder neck junction with a MOMO purple load, as this was quite thickened and did not appear to likely hold clips very well. This was accomplished and the artery was then divided with hemoclips and divided distal to those with Harmonic Scalpel. The gallbladder was then dissected off the gallbladder bed and delivered through the epigastric trocar site with several large stones present. The area of dissection was then was inspected. No bleeding or other problems were noted. Bilateral trap boxes were then placed at this point, and a Glenn-Landa drain was placed in the area of the gallbladder fossa and the area of the abscess formation and taken out through the right lateral trocar site and remaining trocars were then removed. The fascia at the 12 mm sites was closed with 0 Vicryl stitch and skin with 4-0 Vicryl skin stitch. Dressing was applied. The patient was taken to the recovery room in satisfactory condition. Physician litigation legal assistant, Sarah Eaton PA-C played an essential role in assisting in this case, helping to position the patient, retract structures as needed, as well as suturing and cutting sutures when indicated. Her presence improved patient safety and decreased operative time. Paul Redd MD /[id number]
== END 2019-02-02 12:05 | disposition home or self-care (01) | DRG 263 ==
LOC: JP.ED 04:08 → JP.2SS 09:34
PROVIDERS: ADMIT Hospitalist; ATTEND Hospitalist
PROC: 0FT44ZZ Resection of Gallbladder, Percutaneous Endoscopic Approach (ICD-10-PCS; principal; 2019-02-01)
PROC: 0FB04ZX Excision of Liver, Percutaneous Endoscopic Approach, Diagnostic (ICD-10-PCS; 2019-02-01)
PROC: 0D9W4ZX Drainage of Peritoneum, Percutaneous Endoscopic Approach, Diagnostic (ICD-10-PCS; 2019-02-01)
DX: K80.12 Calculus of gallbladder with acute and chronic cholecystitis without obstruction (principal); K76.9 Liver disease, unspecified; K65.1 Peritoneal abscess; I48.91 Unspecified atrial fibrillation; I10 Essential (primary) hypertension; F43.10 Post-traumatic stress disorder, unspecified; E66.9 Obesity, unspecified; Z68.41 Body mass index [BMI] 40.0-44.9, adult; H54.7 Unspecified visual loss; J30.9 Allergic rhinitis, unspecified; G47.30 Sleep apnea, unspecified; Z99.89 Dependence on other enabling machines and devices; E83.42 Hypomagnesemia
CPT/HCPCS: 36415; 74177; 76705; 76705-26; 80053; 81001; 83690; 83735; 84100; 84439; 84443; 84481; 84484; 85025; 85027; 87070; 87075; 87205; 88304; 88307; 93005; 94762; 96361; 96374; 96375; 96376; 99285-25; A9270-GY; C9113; J0171; J0287; J0330; J0780; J1100; J1170; J1885; J2405; J2704; J2710; J2795; J3010; J3475; J3490; J7030; J7042; J7050; J7120

== ENCOUNTER 2025-08-28 19:05 | Emergency (ER) | payer OTHER ==
[2025-08-28 19:20] LABS: BASOPHILS ABSOLUTE AUTO 0.05 K/uL (0.00-0.10); BASOPHILS PERCENT AUTO 0.6 % (0.1-1.3); EOSINOPHILS ABSOLUTE AUTO 0.19 K/uL (0.00-0.40); EOSINOPHILS PERCENT AUTO 2.3 % (0.0-5.4); IMMATURE GRAN PERCENT AUTO 0.2 % (0.0-0.7); LYMPHOCYTES ABSOLUTE AUTO 1.73 K/uL (0.8-3.3); LYMPHOCYTES PERCENT AUTO 21.2 % (11.4-47.7); MONOCYTES ABSOLUTE AUTO 0.44 K/uL (0.20-0.90); MONOCYTES PERCENT AUTO 5.4 % (3.3-12.6); NEUTROPHILS ABSOLUTE AUTO 5.74 K/uL (1.0-7.6); NEUTROPHILS PERCENT AUTO 70.3 % (40.0-78.1); PLATELET COUNT,PLT 178 K/uL (130-375); RED BLOOD CELL COUNT 4.82 M/uL (4.14-5.76); WHITE BLOOD CELL COUNT,WBC 8.2 K/uL (3.2-11.0)
[2025-08-28 19:25] LABS: IMMATURE GRAN ABSOLUTE AUTO 0.02 K/uL (0.00-0.23)
[2025-08-28 19:44] LABS: A/G RATIO 1.4 (1.2-2.2); ALANINE AMINOTRANSFERASE,ALT 42 U/L (12-78); ASPARTATE AMNIOTRANSFERASE,AST 19 U/L (15-37); BILIRUBIN TOTAL 0.4 mg/dL (0.2-1.0); BLOOD UREA NITROGEN,BUN 16 mg/dL (7-18); CARBON DIOXIDE,CO2 25 mmol/L (21-32); CHLORIDE,CL 102 mmol/L (100-108); CREATININE 0.9 mg/dL (0.8-1.3); EST CRCL DRUG DOSING (CG) 109.84 mL/min; ESTIMATED GFR 99 mL/min (>60); GLUCOSE RANDOM 106 mg/dL (74-106); POTASSIUM,K 3.9 mmol/L (3.6-5.2); PROTEIN TOTAL,TP 6.9 g/dL (6.4-8.2); SODIUM,NA 139 mmol/L (140-148); TROPONIN I HIGH SENSITIVITY 6.6 pg/mL (<=60.3)
[2025-08-28] MEDS: Nitroglycerin 0.4 MG Tab.SL SL ONE (21:21)
[2025-08-28] MEDS: fentaNYL 100 MCG/2 ML SDV IVPUSH ONE (21:26)
== END 2025-08-28 22:11 | disposition home or self-care (01) ==
LOC: JP.ED 19:05
DX: R07.89 Other chest pain (principal); I10 Essential (primary) hypertension; E66.9 Obesity, unspecified; Z88.6 Allergy status to analgesic agent; Z79.82 Long term (current) use of aspirin; Z79.899 Other long term (current) drug therapy; Z68.36 Body mass index [BMI] 36.0-36.9, adult
CPT/HCPCS: 36415; 80053; 83605; 84484; 85025; 96374; 99285; J3010; 99284